=== PATIENT | female | born 1950 | race Caucasian/White ===

== ENCOUNTER 2016-11-02 10:54 | Inpatient (IN) | payer MEDICARE, BC, MEDICAID ==
[~2016-11-02] VITALS: Ht 157.5 cm; Wt 128.5 kg
[~2016-11-02 10:54] MED LIST: CELEXA 20MG20 MG/TAB PO; COLACE 100100 MG/CAP PO; COUMADIN 6MG6 MG/TAB PO; DITROPAN 5MG TAB5 MG PO; FERRATE325 MG PO; FOLIC ACID 11 MG/TA1 PO; LASIX 40MG TABL40 MG PO; MILLIPRED5 MG PO; MINOCYCLIN100 MG/CAP PO; MOBIC15 MG PO; NIFEREX-150150 MG PO; NORCO 325 MG-7.1 TAB PO; OXECTA5 MG PO; PERCOCET 325 MG1 TA2 PO; PREDNISONE 5MG5 MG PO; RIFAMPIN300 MG PO; RIFAMPIN600 MG PO; RITALIN10 MG PO; TYLENOL 500MG500 MG PO; ULTRAM 50MG TAB50 MG PO; [UNRECOGNIZED DRUG - CODE] IV
[2016-11-02 11:29] LABS: BASO % 0.4 % (0.0-2.0); EOS # 0.1 (0.0-0.7); EOS % 0.5 % (0-4.0); GRAN # 8.6 (1.4-6.5); GRAN % 80.1 % (42.2-75.2); HEMATOCRIT 37.5 % (37.0-47.0); LYMPH # 1.2 (1.2-3.4); LYMPH % 10.9 % (20.0-51.0); MEAN CELL VOLUME 90 fl (80.0-100.0); MEAN CORPUSCULAR HEMOGLOBIN 28 pg (27.0-31.0); MEAN CORPUSCULAR HGB CONC 32 g/dl (33.0-37.0); MEAN PLATELET VOLUME 10.4 fl (7.4-10.4); MONO # 0.8 (0.1-0.6); MONO % 7.6 % (1.7-9.3); PLATELET COUNT 321 K/mm3 (130-400); RED BLOOD COUNT 4.17 M/mm3 (4.10-5.30); REDCELL DISTRIBUTION WIDTH-CV 15.1 % (11.5-14.5)
[2016-11-02 11:30] LABS: HEMOGLOBIN 11.8 g/dl (12.5-16.0)
[2016-11-02 11:40] LABS: ALBUMIN 3.3 gm/dL (3.5-5.0); BILIRUBIN,TOTAL 0.7 mg/dL (0.0-1.0); C-REACTIVE PROTEIN 0.8 mg/dL (0.0-0.9); CALCIUM 9.4 mg/dL (8.4-10.2); CREATININE, serum 0.62 mg/dL (0.52-1.25); POTASSIUM 3.5 mmol/L (3.4-5.0); TOTAL PROTEIN 6.7 gm/dL (6.4-8.2)
[2016-11-02] MEDS ORDERED: MULTI VITAMINS1 TAB PO (11:41)
[2016-11-02] MEDS ORDERED: PROAIR HFA0.09 MG/AC IH (11:41)
[2016-11-02] MEDS ORDERED: ASPIRIN 32325 MG/TAB PO (11:49)
[2016-11-02] MEDS ORDERED: OSCAL 500 TAB500 MG PO (11:50)
[2016-11-02] MEDS ORDERED: B-12 500 MCG PO (11:50)
[2016-11-02 11:52] LABS: TROPONIN-I 1.59 ng/mL (0.000-0.034)
[2016-11-02] MEDS ORDERED: D3-5050000 IU (11:56)
[2016-11-02] MEDS ORDERED: MELAT3MGTAB (11:57)
[2016-11-02] MEDS ORDERED: FOSAMAX 70MG TA70 MG PO (11:57)
[2016-11-02] MEDS ORDERED: FOLIC ACID 11 MG/TA1 PO (11:57)
[2016-11-02] MEDS ORDERED: METHOTREXA2.5 MG/TAB PO (11:59)
[2016-11-02] MEDS ORDERED: ORENCIA CL125 MG/1 M SQ (12:01)
[2016-11-02 12:11] LABS: INR 1.1 (0.8-3.0); PROTHROMBIN TIME 11.7 SECONDS (9.7-12.8)
[2016-11-02 15:10] LABS: TROPONIN-I 3 HR POST INITIAL 1.47 ng/mL (0.000-0.034)
--- NOTE | 2016-11-02 15:15 | NUR ---
PATIENT HAS ARRIVED TO ICU 4. VSS. HEPARIN GTT AND NITRO GTT INFUSING. NO COMPLAINTS. WILL CONTINUE TO MONITOR.
[2016-11-02] MEDS ORDERED: VITAMIN D 400400 IU PO (15:45)
[2016-11-02] MEDS ORDERED: PAXIL 20MG20 MG PO (15:50)
[2016-11-02] MEDS ORDERED: MOBIC15 MG PO (15:52)
[2016-11-02] MEDS ORDERED: PROBIOTIC ACID1 EAC3 PO (15:53)
[2016-11-02 16:00] VITALS: BP 127/76; PULSE 72; TEMP 98.5
[2016-11-02 16:18] VITALS: BP 104/76; PULSE 60
--- NOTE | 2016-11-02 18:14 | NUR ---
PATIENT RESTING BETTER AFTER COMPLAINTS OF BACK PAIN. NORCO GIVEN ABOUT 1.5 HRS AGO. WILL CONTINUE TO MONITOR. VS REMAIN STABLE.
[2016-11-02 20:40] VITALS: BP 100/74; PULSE 64; TEMP 98.7
--- NOTE | 2016-11-02 20:40 | NUR ---
Patient assessment completed, vital signs are stable, patient reports having pain at this time, she denies having any additional concerns, currently she is resting calmly in bed, call light is in reach, will continue to monitor.
[2016-11-03] VITALS (22 sets, daily range): BP systolic 87–146; BP diastolic 50–105; PULSE 48–73; TEMP 97–98.4
--- NOTE | 2016-11-03 04:00 | NUR ---
Patient's nitro drip is now currently on hold for lexiscan in the morning per Dr. Wilder.
[2016-11-03 04:53] LABS: HEMATOCRIT 33.1 % (37.0-47.0); HEMOGLOBIN 10.3 g/dl (12.5-16.0); MEAN CELL VOLUME 91 fl (80.0-100.0); MEAN CORPUSCULAR HEMOGLOBIN 28 pg (27.0-31.0); MEAN CORPUSCULAR HGB CONC 31 g/dl (33.0-37.0); MEAN PLATELET VOLUME 10.3 fl (7.4-10.4); PLATELET COUNT 246 K/mm3 (130-400); RED BLOOD COUNT 3.62 M/mm3 (4.10-5.30); REDCELL DISTRIBUTION WIDTH-CV 15.3 % (11.5-14.5)
[2016-11-03 05:02] LABS: CALCIUM 8.7 mg/dL (8.4-10.2); CREATININE, serum 0.75 mg/dL (0.52-1.25); POTASSIUM 3.7 mmol/L (3.4-5.0)
[2016-11-03 05:19] LABS: TROPONIN-I 0.756 ng/mL (0.000-0.034)
--- NOTE | 2016-11-03 06:40 | NUR ---
Patient has been sleeping/resting well through the night, vital signs have been stable, she has been hypotensive but asymptomatic, she has reported having pain and requested pain meds when needed, she has denied having any additional concerns, currently she is resting calmly in bed, call light is in reach, will continue to monitor.
--- NOTE | 2016-11-03 08:00 | NUR ---
Patient resting in bed, vitals stable, assessment as charted, denies pain at this time, voiding in bedside commode, standby assist, no other needs expressed at this time, call light within reach, will continue to monitor.
--- NOTE | 2016-11-03 08:20 | NUR ---
Patient taken down for lexiscan via wheelchair
--- NOTE | 2016-11-03 08:45 | NUR ---
Patient returned from lexiscan, tolerated well, vitals stable, no other needs at this time.
--- NOTE | 2016-11-03 12:00 | NUR ---
Patient resting in bed, vitals stable, remaining NPO for Heart Cath, denies any chest pain, no other needs expressed at this time, call light within reach, will continue to monitor.
--- NOTE | 2016-11-03 15:34 | NUR ---
Patient receives retirement and physical therapy from [facility].
--- NOTE | 2016-11-03 15:55 | NUR ---
Consent for heart cath signed, Patient taken to [facility].
--- NOTE | 2016-11-03 17:20 | NUR ---
Patient returned from heart cath, TR band at 10 cc on R radial, pulses palpable, vitals stable, denies pain, assisted with ordering dinner, family at [facility], no other needs expressed at this time, will continue to monitor.
--- NOTE | 2016-11-03 19:15 | NUR ---
Received report from SOPHIE Chow
--- NOTE | 2016-11-03 22:30 | NUR ---
Patient up to chair to watch television with stand by assist only . Patient had difficulty standing back up to return to bed; two person assist required.
[2016-11-04] VITALS (8 sets, daily range): BP systolic 97–161; BP diastolic 50–95; PULSE 49–53; TEMP 97.4–98.8
--- NOTE | 2016-11-04 03:24 | NUR ---
Patient currently resting in bed with eyes shut. VS stable.
[2016-11-04 05:08] LABS: BASO % 0.4 % (0.0-2.0); EOS # 0.2 (0.0-0.7); EOS % 3.9 % (0-4.0); GRAN # 3.2 (1.4-6.5); GRAN % 55.7 % (42.2-75.2); LYMPH # 1.6 (1.2-3.4); LYMPH % 28.4 % (20.0-51.0); MEAN CELL VOLUME 92 fl (80.0-100.0); MEAN CORPUSCULAR HGB CONC 31 g/dl (33.0-37.0); MEAN PLATELET VOLUME 10.5 fl (7.4-10.4); MONO # 0.6 (0.1-0.6); MONO % 11.2 % (1.7-9.3); PLATELET COUNT 240 K/mm3 (130-400); REDCELL DISTRIBUTION WIDTH-CV 15.2 % (11.5-14.5)
[2016-11-04 05:19] LABS: HEMATOCRIT 33.1 % (37.0-47.0); HEMOGLOBIN 10.3 g/dl (12.5-16.0); MEAN CORPUSCULAR HEMOGLOBIN 29 pg (27.0-31.0)
[2016-11-04 05:28] LABS: CALCIUM 8.5 mg/dL (8.4-10.2); CREATININE, serum 0.66 mg/dL (0.52-1.25); POTASSIUM 3.6 mmol/L (3.4-5.0)
--- NOTE | 2016-11-04 07:15 | NUR ---
Report given to SOPHIE Chow
--- NOTE | 2016-11-04 08:45 | NUR ---
Patient resting in bed, vitals stable, rating pain at 2/10, drowsy but easily arousable, assessment as charted, R radial has easily palpable pulse, bandaid CDI, took morning medications without difficulty, ate all of her breakfast, no other needs expressed at this time, call light within reach, will continue to monitor.
--- NOTE | 2016-11-04 12:07 | NUR ---
Patient resting in bed, vitals stable, heart rate remains bradycardic, patient is asymptomatic, rating back pain 2/10, prn pain medication given, assisted with repositioning, and ordering lunch, no other needs expressed at this time, call light within reach, will continue to monitor.
--- NOTE | 2016-11-04 15:15 | NUR ---
Patient escorted up to the medical floor on tele, via wheelchair, report called to Rimma BARRIOS, she will resume care at this time.
--- NOTE | 2016-11-04 15:30 | NUR ---
Pt arrived to floor at this time.
--- NOTE | 2016-11-04 18:22 | NUR ---
Pt sitting up on side of bed eating dinner, friend at bedside. She has been dozing off and on in bed since arriving to the medical floor. She denies any pain or needs. Call light within reach. Will monitor.
--- NOTE | 2016-11-04 19:00 | NUR ---
Report given to Liyah. Pt up to the bathroom with assistance. All questions answered.
--- NOTE | 2016-11-04 21:00 | NUR ---
PT RESTING IN BED. CPAP ON. BED IN LOW POSITION. CALL LIGHT WITHIN REACH.
[2016-11-05 00:18] VITALS: BP 96/51; PULSE 52
[2016-11-05 04:51] VITALS: BP 92/50; PULSE 54; TEMP 98.1
[2016-11-05 07:58] VITALS: BP 103/53; PULSE 46; TEMP 97.8
--- NOTE | 2016-11-05 08:15 | NUR ---
Pt resting in bed with call light within reach; assessment complete and charted. Very drowsy this AM but wakens when spoken to. Denies further needs at this time. Will continue to monitor. INT flushed to left forearm.
--- NOTE | 2016-11-05 09:59 | NUR ---
RA and SW student met with patient to review discharge plan. Patient lives alone in [place], she uses a manual wheelchair and a walker; she reports independence with ADLs. Patient plans to return home upon discharge with home health services for PT/OT and nursing. SW to continue to follow.
[2016-11-05 11:21] VITALS: BP 94/54; PULSE 57; TEMP 97.4
[2016-11-05] MEDS ORDERED: COREG 3.123.125 MG/T PO (12:41)
[2016-11-05] MEDS ORDERED: VASOTEC 5MG5 MG/TAB PO (12:41)
[2016-11-05 12:43] VITALS: BP 94/54; PULSE 57; TEMP 97.4
--- NOTE | 2016-11-05 14:12 | NUR ---
RA and RA student followed up with patient, as patient has had increased weakness. Patient agreeable to a skilled stay upon discharge, RA reviewed options and patient chooses [facility]. Referral made. Bhavesh with [facility] accepts patient for a skilled stay. Discharge orders faxed to Bhavesh and transportation arranged for [id number] today. Patient informed of transport time.
--- NOTE | 2016-11-05 15:53 | NUR ---
Report given to nurse at [facility]. INT removed from left forearm. Pt assissted to dress; all questions answered. No further needs at this time. Pt discharges via facility transportation.
[2017-07-06] MEDS ORDERED: DITROPAN 5MG TAB5 MG PO (12:29)
[2017-07-06] MEDS ORDERED: NORCO 325 MG-7.1 TAB PO (12:29)
[2017-07-06] MEDS ORDERED: MOBIC15 MG PO ×2 (12:30)
[2017-07-06] MEDS ORDERED: MIRALAX PA17 GM/Dose PO (12:31)
[2017-07-06] MEDS ORDERED: DULCOLAX STOOL100 MG PO (12:32)
[2017-07-06] MEDS ORDERED: MELATONIN5 M1 PO (12:32)
[2017-07-06] MEDS ORDERED: DURLAZA162.5 MG PO (12:33)
[2017-07-06] MEDS ORDERED: VASOTEC 5MG5 MG/TAB PO (12:34)
[2017-07-06] MEDS ORDERED: CYMBALTA 60MG60 MG PO (12:34)
[2017-07-06] MEDS ORDERED: COREG 3.123.125 MG/T PO (12:34)
[2017-07-06] MEDS ORDERED: FOSAMAX 70MG TA70 MG PO (12:35)
[2017-07-06] MEDS ORDERED: TURMERIC500 MG PO (12:35)
[2017-07-06] MEDS ORDERED: DOXYCYCLINE 10100 MG PO (12:36)
[2017-07-06] MEDS ORDERED: FOLIC ACID 11 MG/TA1 PO (12:36)
[2017-07-06] MEDS ORDERED: MULTI VITAMINS1 TAB PO (12:36)
[2017-07-06] MEDS ORDERED: PROBIOTIC ACID1 EAC3 PO (12:37)
[2017-07-06] MEDS ORDERED: VITAMIN D 400400 IU PO (12:37)
[2017-07-06] MEDS ORDERED: PROAIR HFA0.09 MG/AC IH (12:38)
[2017-07-09] MEDS ORDERED: ASPI325T6 PO (15:14)
[2017-07-09] MEDS ORDERED: VANCOCIN HCL1 GM IV (15:20)
[2017-07-09] MEDS ORDERED: NEURONTIN100 MG/CAP PO (15:20)
[2017-07-09] MEDS ORDERED: NS INT FLUSH 1010 ML IV (15:24)
[2017-07-09] MEDS ORDERED: HEPARIN 50500 U/5 ML IV (15:24)
[2017-07-09] MEDS ORDERED: NORCO 325 MG-7.1 TAB PO (15:24)
[2017-07-10] MEDS ORDERED: PHENERGAN25 MG/ML IM (11:50)
== END 2016-11-05 15:54 | DRG 280 ==
LOC: COL.ER 10:54 → ICU 12:13 → MEDICAL 11-04 15:34
PROVIDERS: Emergency Medicine; Family Medicine; ADMIT Internal Medicine Cardiovascular Disease
PROC: B2111ZZ Fluoroscopy of Multiple Coronary Arteries using Low Osmolar Contrast (ICD-10-PCS; principal; 2016-11-03)
PROC: B2151ZZ Fluoroscopy of Left Heart using Low Osmolar Contrast (ICD-10-PCS; 2016-11-03)
DX: I42.0 Dilated cardiomyopathy (principal); I50.23 Acute on chronic systolic (congestive) heart failure; I21.4 Non-ST elevation (NSTEMI) myocardial infarction; Z68.43 Body mass index [BMI] 50.0-59.9, adult; I69.354 Hemiplegia and hemiparesis following cerebral infarction affecting left non-dominant side; I25.10 Atherosclerotic heart disease of native coronary artery without angina pectoris; E66.01 Morbid (severe) obesity due to excess calories; I11.0 Hypertensive heart disease with heart failure; F17.210 Nicotine dependence, cigarettes, uncomplicated; Z98.84 Bariatric surgery status; M06.9 Rheumatoid arthritis, unspecified
CPT/HCPCS: 99223-AI; 99232-AI; 99239; A9502; C1769; J1170; J1644; J1650; J2250; J2785; J3010; J7030; J8610; Q9967

== ENCOUNTER 2016-12-25 11:47 | Emergency (ER) | payer MEDICARE, BC ==
[~2016-12-25] VITALS: Ht 157.5 cm; Wt 118.2 kg
[~2016-12-25 11:47] MED LIST changes: +ASPIRIN 32325 MG/TAB PO; +B-12 500 MCG PO; +COREG 3.123.125 MG/T PO; +D3-5050000 IU; +FOSAMAX 70MG TA70 MG PO; +MELAT3MGTAB; +METHOTREXA2.5 MG/TAB PO; +MULTI VITAMINS1 TAB PO; +ORENCIA CL125 MG/1 M SQ; +OSCAL 500 TAB500 MG PO; +PAXIL 20MG20 MG PO; +PROAIR HFA0.09 MG/AC IH; +PROBIOTIC ACID1 EAC3 PO; +VASOTEC 5MG5 MG/TAB PO; +VITAMIN D 400400 IU PO
[2016-12-25 11:48] VITALS: TEMP 9831
[2016-12-25] MEDS ORDERED: CEPHALEXIN500 M1 PO (14:43)
[2016-12-25 17:12] VITALS: BP 151/83; PULSE 84
== END 2016-12-25 17:13 | disposition home or self-care (01) ==
LOC: COL.ER 11:47
DX: S90.32XA Contusion of left foot, initial encounter (principal); I25.10 Atherosclerotic heart disease of native coronary artery without angina pectoris; I25.2 Old myocardial infarction; I10 Essential (primary) hypertension; J44.9 Chronic obstructive pulmonary disease, unspecified; E78.5 Hyperlipidemia, unspecified; Z87.891 Personal history of nicotine dependence; Z79.82 Long term (current) use of aspirin; W01.0XXA Fall on same level from slipping, tripping and stumbling without subsequent striking against object, initial encounter; Y92.009 Unspecified place in unspecified non-institutional (private) residence as the place of occurrence of the external cause
CPT/HCPCS: J3010

== ENCOUNTER → 2017-01-15 | Outpatient (CLI) | payer MEDICARE, BC ==
[~2017-01-15] MED LIST changes: +CEPHALEXIN500 M1 PO
== END ==
LOC: ZLAB.STJ 14:30
DX: I50.22 Chronic systolic (congestive) heart failure (principal); D50.9 Iron deficiency anemia, unspecified

== ENCOUNTER → 2017-01-25 | Outpatient (CLI) | payer MEDICARE, BC ==
[2017-01-25 14:38] LABS: CALCIUM 9.1 mg/dL (8.4-10.2); CREATININE, serum 0.7 mg/dL (0.52-1.25); POTASSIUM 4.7 mmol/L (3.4-5.0); URIC ACID 4.9 mg/dL (2.5-6.2)
== END ==
LOC: ZLAB.STJ 14:22
PROVIDERS: Internal Medicine
DX: I21.4 Non-ST elevation (NSTEMI) myocardial infarction (principal); M06.9 Rheumatoid arthritis, unspecified

== ENCOUNTER → 2017-02-25 | Outpatient (CLI) | payer MEDICARE, BC ==
[2017-02-25 15:25] LABS: BASO % 0.7 % (0.0-2.0); EOS # 0.5 (0.0-0.7); EOS % 8.9 % (0-4.0); GRAN # 3.1 (1.4-6.5); GRAN % 51.3 % (42.2-75.2); LYMPH # 1.9 (1.2-3.4); LYMPH % 31.2 % (20.0-51.0); MEAN CELL VOLUME 96 fl (80.0-100.0); MEAN CORPUSCULAR HGB CONC 31 g/dl (33.0-37.0); MONO # 0.5 (0.1-0.6); MONO % 7.6 % (1.7-9.3); PLATELET COUNT 316 K/mm3 (130-400); RED BLOOD COUNT 3.62 M/mm3 (4.10-5.30); REDCELL DISTRIBUTION WIDTH-CV 15.6 % (11.5-14.5)
[2017-02-25 15:27] LABS: HEMATOCRIT 34.9 % (37.0-47.0); HEMOGLOBIN 10.7 g/dl (12.5-16.0); MEAN CORPUSCULAR HEMOGLOBIN 30 pg (27.0-31.0)
[2017-02-25 15:43] LABS: ALBUMIN 3.4 gm/dL (3.5-5.0); BILIRUBIN,TOTAL 0.3 mg/dL (0.0-1.0); CALCIUM 9.4 mg/dL (8.4-10.2); CREATININE, serum 1.17 mg/dL (0.52-1.25); TOTAL PROTEIN 6.8 gm/dL (6.4-8.2)
[2017-02-25 15:52] LABS: POTASSIUM 4.7 mmol/L (3.4-5.0)
== END ==
LOC: ZLAB.STJ 15:21
PROVIDERS: Internal Medicine
DX: I50.22 Chronic systolic (congestive) heart failure (principal)

== ENCOUNTER → 2017-04-23 | Outpatient (REF) | LOC: ZLAB.STJ 15:33 | DX: Z01.89 Encounter for other specified special examinations (principal) ==

== ENCOUNTER → 2017-07-13 | Outpatient (REF) ==
[~2017-07-13] MED LIST changes: +ASPI325T6 PO; +CYMBALTA 60MG60 MG PO; +DOXYCYCLINE 10100 MG PO; +DULCOLAX STOOL100 MG PO; +DURLAZA162.5 MG PO; +HEPARIN 50500 U/5 ML IV; +MELATONIN5 M1 PO; +MIRALAX PA17 GM/Dose PO; +NEURONTIN100 MG/CAP PO; +NS INT FLUSH 1010 ML IV; +PHENERGAN25 MG/ML IM; +TURMERIC500 MG PO; +VANCOCIN HCL1 GM IV
[2017-07-13 09:42] LABS: MEAN CELL VOLUME 90 fl (80.0-100.0); MEAN CORPUSCULAR HGB CONC 31 g/dl (33.0-37.0); MEAN PLATELET VOLUME 9.5 fl (7.4-10.4); PLATELET COUNT 525 K/mm3 (130-400); RED BLOOD COUNT 3.15 M/mm3 (4.10-5.30); REDCELL DISTRIBUTION WIDTH-CV 14.5 % (11.5-14.5)
[2017-07-13 09:44] LABS: HEMATOCRIT 28.2 % (37.0-47.0); HEMOGLOBIN 8.6 g/dl (12.5-16.0); MEAN CORPUSCULAR HEMOGLOBIN 27 pg (27.0-31.0)
[2017-07-13 10:06] LABS: ALBUMIN 2.5 gm/dL (3.5-5.0); BILIRUBIN,TOTAL 0.2 mg/dL (0.0-1.0); CALCIUM 9.2 mg/dL (8.4-10.2); CREATININE, serum 0.67 mg/dL (0.52-1.25); POTASSIUM 4.4 mmol/L (3.4-5.0); TOTAL PROTEIN 5.8 gm/dL (6.4-8.2)
[2017-07-13 11:30] LABS: BAND 12 % (0-10); EOSINOPHIL 5 % (0-4); LYMPHOCYTE 27 % (20.0-51.0); NEUTROPHILS 55 % (42.0-75.2); PLATELET ESTIMATE INCREASED (NORMAL)
== END ==
LOC: ZLAB.STJ 09:31
PROVIDERS: Internal Medicine
DX: Z51.81 Encounter for therapeutic drug level monitoring (principal); I10 Essential (primary) hypertension; Z48.817 Encounter for surgical aftercare following surgery on the skin and subcutaneous tissue

== ENCOUNTER → 2017-07-14 | Outpatient (REF) ==
[2017-07-14 10:07] LABS: CREATININE, serum 0.67 mg/dL (0.52-1.25)
[2017-07-14 11:26] LABS: VANCOMYCIN TROUGH 21.67 ug/mL (7.00-20.00)
== END ==
LOC: ZLAB.STJ 09:42
PROVIDERS: Internal Medicine Infectious Disease
DX: Z51.81 Encounter for therapeutic drug level monitoring (principal); R79.89 Other specified abnormal findings of blood chemistry

== ENCOUNTER → 2017-07-15 | Outpatient (REF) | LOC: ZLAB.STJ 09:21 | DX: Z01.89 Encounter for other specified special examinations (principal) ==

== ENCOUNTER → 2017-07-16 | Outpatient (REF) ==
[2017-07-16 09:44] LABS: CREATININE, serum 0.73 mg/dL (0.52-1.25)
[2017-07-16 10:20] LABS: VANCOMYCIN TROUGH 8.23 ug/mL (7.00-20.00)
== END ==
LOC: ZLAB.STJ 09:28
PROVIDERS: Internal Medicine Infectious Disease
DX: Z51.81 Encounter for therapeutic drug level monitoring (principal)

== ENCOUNTER → 2017-07-19 | Outpatient (REF) ==
[2017-07-19 10:07] LABS: BASO # 0.1 (0.0-0.2); BASO % 0.8 % (0.0-2.0); EOS # 0.5 (0.0-0.7); EOS % 6.9 % (0-4.0); GRAN # 2.9 (1.4-6.5); GRAN % 44.4 % (42.2-75.2); LYMPH # 2.4 (1.2-3.4); LYMPH % 36.3 % (20.0-51.0); MEAN CELL VOLUME 90 fl (80.0-100.0); MEAN CORPUSCULAR HGB CONC 30 g/dl (33.0-37.0); MEAN PLATELET VOLUME 9.7 fl (7.4-10.4); MONO # 0.7 (0.1-0.6); MONO % 10.4 % (1.7-9.3); PLATELET COUNT 528 K/mm3 (130-400); RED BLOOD COUNT 3.33 M/mm3 (4.10-5.30); REDCELL DISTRIBUTION WIDTH-CV 14.8 % (11.5-14.5)
[2017-07-19 10:08] LABS: ALBUMIN 2.6 gm/dL (3.5-5.0); BILIRUBIN,TOTAL 0.4 mg/dL (0.0-1.0); CALCIUM 8.9 mg/dL (8.4-10.2); CREATININE, serum 0.8 mg/dL (0.52-1.25); TOTAL PROTEIN 5.8 gm/dL (6.4-8.2)
[2017-07-19 10:13] LABS: VANCOMYCIN TROUGH 12.47 ug/mL (7.00-20.00)
[2017-07-19 10:19] LABS: HEMATOCRIT 29.9 % (37.0-47.0); MEAN CORPUSCULAR HEMOGLOBIN 27 pg (27.0-31.0)
== END ==
LOC: ZLAB.STJ 09:47
PROVIDERS: Internal Medicine Infectious Disease
DX: Z51.81 Encounter for therapeutic drug level monitoring (principal); R68.89 Other general symptoms and signs

== ENCOUNTER → 2017-07-22 | Outpatient (REF) | LOC: ZLAB.STJ 09:22 | DX: Z01.89 Encounter for other specified special examinations (principal) ==

== ENCOUNTER → 2017-07-26 | Outpatient (REF) ==
[~2017-07-26] MED LIST changes: +NORCO 325 MG-101 TAB PO; +OPTIMUM AC500 Millio PO
[2017-07-26 11:53] LABS: BASO # 0.1 (0.0-0.2); EOS # 0.8 (0.0-0.7); EOS % 12.9 % (0-4.0); GRAN # 2.6 (1.4-6.5); GRAN % 43.9 % (42.2-75.2); LYMPH # 1.9 (1.2-3.4); LYMPH % 31.7 % (20.0-51.0); MEAN CELL VOLUME 89 fl (80.0-100.0); MEAN CORPUSCULAR HGB CONC 30 g/dl (33.0-37.0); MEAN PLATELET VOLUME 9.6 fl (7.4-10.4); MONO # 0.6 (0.1-0.6); MONO % 10.2 % (1.7-9.3); PLATELET COUNT 413 K/mm3 (130-400); RED BLOOD COUNT 3.51 M/mm3 (4.10-5.30); REDCELL DISTRIBUTION WIDTH-CV 14.9 % (11.5-14.5)
[2017-07-26 11:54] LABS: HEMATOCRIT 31.1 % (37.0-47.0); HEMOGLOBIN 9.4 g/dl (12.5-16.0); MEAN CORPUSCULAR HEMOGLOBIN 27 pg (27.0-31.0)
[2017-07-26 12:02] LABS: ALBUMIN 2.9 gm/dL (3.5-5.0); BILIRUBIN,TOTAL 0.4 mg/dL (0.0-1.0); C-REACTIVE PROTEIN 4.6 mg/dL (0.0-0.9); CREATININE, serum 1.07 mg/dL (0.52-1.25); TOTAL PROTEIN 6.9 gm/dL (6.4-8.2)
[2017-07-26 12:19] LABS: ERYTHROCYTE SEDIMENTATION RATE 52 mm/hr (0-30)
== END ==
LOC: ZLAB.STJ 11:43
PROVIDERS: Internal Medicine Infectious Disease
DX: Z01.89 Encounter for other specified special examinations (principal)

== ENCOUNTER 2017-07-27 14:40 | Inpatient (IN) | payer MEDICARE, BC ==
[~2017-07-27] VITALS: Ht 157.5 cm; Wt 106.6 kg
[~2017-07-27 14:40] MED LIST changes: -NORCO 325 MG-101 TAB PO; -OPTIMUM AC500 Millio PO
[2017-07-27 15:25] VITALS: BP 105/60; PULSE 59; TEMP 97.9
[2017-07-27] MEDS ORDERED: VANCOCIN HCL1 GM IV ×2 (16:30→16:31)
[2017-07-27] MEDS ORDERED: OPTIMUM AC500 Millio PO (16:34)
[2017-07-27] MEDS ORDERED: NORCO 325 MG-101 TAB PO (16:59)
[2017-07-27 17:37] LABS: BASO # 0.1 (0.0-0.2); BASO % 1.1 % (0.0-2.0); EOS # 0.8 (0.0-0.7); EOS % 15.1 % (0-4.0); GRAN % 37.9 % (42.2-75.2); LYMPH # 1.9 (1.2-3.4); LYMPH % 35.1 % (20.0-51.0); MEAN CELL VOLUME 90 fl (80.0-100.0); MEAN CORPUSCULAR HEMOGLOBIN 27 pg (27.0-31.0); MEAN CORPUSCULAR HGB CONC 30 g/dl (33.0-37.0); MEAN PLATELET VOLUME 9.2 fl (7.4-10.4); MONO # 0.6 (0.1-0.6); MONO % 10.2 % (1.7-9.3); PLATELET COUNT 407 K/mm3 (130-400); RED BLOOD COUNT 3.69 M/mm3 (4.10-5.30); REDCELL DISTRIBUTION WIDTH-CV 14.8 % (11.5-14.5)
[2017-07-27 17:41] LABS: HEMATOCRIT 33.2 % (37.0-47.0)
[2017-07-27 17:50] LABS: ALBUMIN 3.2 gm/dL (3.5-5.0); BILIRUBIN,TOTAL 0.4 mg/dL (0.0-1.0); CALCIUM 9.2 mg/dL (8.4-10.2); CREATININE, serum 1.12 mg/dL (0.52-1.25); POTASSIUM 5.4 mmol/L (3.4-5.0); TOTAL PROTEIN 7.4 gm/dL (6.4-8.2)
[2017-07-27 18:08] LABS: ERYTHROCYTE SEDIMENTATION RATE 55 mm/hr (0-30)
[2017-07-27 19:01] LABS: COLLECTION METHOD CLEAN CATCH
[2017-07-27 19:12] LABS: PH 5 (5-8); SQUAMOUS EPITHELIAL 0-2 /hpf; URINE APPEARANCE Clear; URINE BACTERIA Rare /hpf; URINE BILIRUBIN Negative (NEGATIVE); URINE BLOOD Negative (NEGATIVE); URINE COLOR Yellow; URINE GLUCOSE Negative (NEGATIVE); URINE KETONE Negative (NEGATIVE); URINE LEUKOCYTE ESTERASE Negative (NEGATIVE); URINE NITRATE Negative (NEGATIVE); URINE PROTEIN(semi-quant) Negative (NEGATIVE); URINE RBC 0-2 /hpf
[2017-07-27 20:25] VITALS: BP 96/55; PULSE 73; TEMP 98.1
[2017-07-28] VITALS (7 sets, daily range): BP systolic 96–126; BP diastolic 48–68; PULSE 61–92; TEMP 98–98.5
[2017-07-28 07:44] LABS: BASO # 0.1 (0.0-0.2); BASO % 1.1 % (0.0-2.0); EOS # 0.8 (0.0-0.7); EOS % 14.6 % (0-4.0); GRAN # 2.4 (1.4-6.5); GRAN % 41.4 % (42.2-75.2); LYMPH # 1.8 (1.2-3.4); LYMPH % 31.4 % (20.0-51.0); MEAN CELL VOLUME 91 fl (80.0-100.0); MEAN CORPUSCULAR HGB CONC 30 g/dl (33.0-37.0); MEAN PLATELET VOLUME 9.7 fl (7.4-10.4); MONO # 0.6 (0.1-0.6); MONO % 11.1 % (1.7-9.3); PLATELET COUNT 389 K/mm3 (130-400); REDCELL DISTRIBUTION WIDTH-CV 14.8 % (11.5-14.5)
[2017-07-28 07:50] LABS: HEMATOCRIT 30.8 % (37.0-47.0); HEMOGLOBIN 9.3 g/dl (12.5-16.0); MEAN CORPUSCULAR HEMOGLOBIN 27 pg (27.0-31.0)
[2017-07-28 07:56] LABS: CREATININE, serum 0.8 mg/dL (0.52-1.25)
[2017-07-29 00:18] VITALS: BP 124/73; PULSE 66; TEMP 97.6
[2017-07-29 03:59] VITALS: BP 120/69; PULSE 70; TEMP 97.5
[2017-07-29 06:33] LABS: BASO % 0.7 % (0.0-2.0); EOS # 0.7 (0.0-0.7); EOS % 11.6 % (0-4.0); GRAN # 2.6 (1.4-6.5); GRAN % 46.8 % (42.2-75.2); LYMPH # 1.6 (1.2-3.4); LYMPH % 28.9 % (20.0-51.0); MEAN CELL VOLUME 91 fl (80.0-100.0); MEAN CORPUSCULAR HGB CONC 30 g/dl (33.0-37.0); MEAN PLATELET VOLUME 9.3 fl (7.4-10.4); MONO # 0.7 (0.1-0.6); MONO % 11.6 % (1.7-9.3); PLATELET COUNT 366 K/mm3 (130-400); RED BLOOD COUNT 3.37 M/mm3 (4.10-5.30); REDCELL DISTRIBUTION WIDTH-CV 14.7 % (11.5-14.5)
[2017-07-29 06:45] LABS: HEMATOCRIT 30.5 % (37.0-47.0); HEMOGLOBIN 9.2 g/dl (12.5-16.0); MEAN CORPUSCULAR HEMOGLOBIN 27 pg (27.0-31.0)
[2017-07-29 06:47] LABS: CALCIUM 9.3 mg/dL (8.4-10.2); CREATININE, serum 0.77 mg/dL (0.52-1.25); POTASSIUM 4.9 mmol/L (3.4-5.0)
[2017-07-29 08:01] VITALS: BP 122/70; PULSE 57; TEMP 97.7
[2017-07-29 12:55] VITALS: BP 111/56; PULSE 56; TEMP 98.4
[2017-07-29 16:11] VITALS: BP 101/60; PULSE 66; TEMP 97.5
[2017-07-29 20:11] VITALS: BP 96/50; PULSE 70; TEMP 98
[2017-07-30] VITALS (14 sets, daily range): BP systolic 92–134; BP diastolic 44–95; PULSE 58–110; TEMP 97.8–98.3
[2017-07-30 08:44] LABS: BASO # 0.1 (0.0-0.2); EOS # 0.6 (0.0-0.7); EOS % 11.6 % (0-4.0); GRAN % 38.2 % (42.2-75.2); LYMPH % 37.6 % (20.0-51.0); MEAN CELL VOLUME 89 fl (80.0-100.0); MEAN CORPUSCULAR HGB CONC 30 g/dl (33.0-37.0); MEAN PLATELET VOLUME 9.7 fl (7.4-10.4); MONO # 0.6 (0.1-0.6); PLATELET COUNT 343 K/mm3 (130-400); REDCELL DISTRIBUTION WIDTH-CV 14.8 % (11.5-14.5)
[2017-07-30 08:47] LABS: HEMATOCRIT 31.1 % (37.0-47.0); HEMOGLOBIN 9.4 g/dl (12.5-16.0); MEAN CORPUSCULAR HEMOGLOBIN 27 pg (27.0-31.0)
[2017-07-30 08:55] LABS: CALCIUM 9.7 mg/dL (8.4-10.2); CREATININE, serum 0.82 mg/dL (0.52-1.25); POTASSIUM 4.8 mmol/L (3.4-5.0)
[2017-07-31 00:15] VITALS: BP 130/80; PULSE 80; TEMP 98.1
[2017-07-31 04:56] VITALS: BP 128/74; PULSE 76; TEMP 98.4
[2017-07-31 07:23] LABS: BASO # 0.1 (0.0-0.2); BASO % 0.9 % (0.0-2.0); EOS # 0.4 (0.0-0.7); EOS % 6.3 % (0-4.0); GRAN # 2.7 (1.4-6.5); GRAN % 49.2 % (42.2-75.2); LYMPH # 1.6 (1.2-3.4); LYMPH % 28.9 % (20.0-51.0); MEAN CELL VOLUME 91 fl (80.0-100.0); MEAN CORPUSCULAR HGB CONC 30 g/dl (33.0-37.0); MEAN PLATELET VOLUME 9.9 fl (7.4-10.4); MONO # 0.8 (0.1-0.6); PLATELET COUNT 343 K/mm3 (130-400); RED BLOOD COUNT 3.32 M/mm3 (4.10-5.30); REDCELL DISTRIBUTION WIDTH-CV 14.6 % (11.5-14.5)
[2017-07-31 07:28] LABS: HEMATOCRIT 30.3 % (37.0-47.0); MEAN CORPUSCULAR HEMOGLOBIN 27 pg (27.0-31.0)
[2017-07-31 07:48] LABS: CALCIUM 9.3 mg/dL (8.4-10.2); CREATININE, serum 0.72 mg/dL (0.52-1.25); POTASSIUM 5.1 mmol/L (3.4-5.0)
[2017-07-31 08:53] VITALS: BP 120/60; PULSE 62; TEMP 97.9
[2017-07-31 11:42] VITALS: BP 107/62; PULSE 66; TEMP 98.3
[2017-07-31 16:05] VITALS: BP 90/59; PULSE 79
[2017-07-31 20:08] VITALS: BP 95/55; PULSE 74; TEMP 98.6
[2017-08-01] VITALS (7 sets, daily range): BP systolic 95–110; BP diastolic 47–62; PULSE 64–80; TEMP 98–98.4
[2017-08-02 04:54] VITALS: BP 112/64; PULSE 80; TEMP 98.4
[2017-08-02 08:39] LABS: BASO # 0.1 (0.0-0.2); BASO % 0.8 % (0.0-2.0); EOS # 0.7 (0.0-0.7); EOS % 10.7 % (0-4.0); GRAN # 2.9 (1.4-6.5); GRAN % 45.1 % (42.2-75.2); LYMPH # 1.9 (1.2-3.4); LYMPH % 30.5 % (20.0-51.0); MEAN CELL VOLUME 89 fl (80.0-100.0); MEAN CORPUSCULAR HGB CONC 30 g/dl (33.0-37.0); MEAN PLATELET VOLUME 9.6 fl (7.4-10.4); MONO # 0.8 (0.1-0.6); MONO % 12.3 % (1.7-9.3); PLATELET COUNT 300 K/mm3 (130-400); RED BLOOD COUNT 3.34 M/mm3 (4.10-5.30); REDCELL DISTRIBUTION WIDTH-CV 14.6 % (11.5-14.5)
[2017-08-02 08:43] LABS: HEMATOCRIT 29.6 % (37.0-47.0); MEAN CORPUSCULAR HEMOGLOBIN 27 pg (27.0-31.0)
[2017-08-02 08:59] VITALS: BP 103/57; PULSE 67; TEMP 98.4
[2017-08-02 09:06] LABS: ERYTHROCYTE SEDIMENTATION RATE 52 mm/hr (0-30)
[2017-08-02] MEDS ORDERED: NORCO 325 MG-101 TAB PO (09:35)
[2017-08-02] MEDS ORDERED: ULTRAM 50MG TAB50 MG PO (09:35)
[2017-08-02 11:22] VITALS: BP 103/57; PULSE 67; TEMP 98.4
== END 2017-08-02 11:30 | DRG 475 ==
LOC: SURG 14:40
PROVIDERS: Orthopaedic Surgery Sports Medicine; Physician Assistant
PROC: 0Y6C0Z1 Detachment at Right Upper Leg, High, Open Approach (ICD-10-PCS; principal; 2017-07-30 12:30)
DX: T84.53XA Infection and inflammatory reaction due to internal right knee prosthesis, initial encounter (principal); M86.18 Other acute osteomyelitis, other site; I42.0 Dilated cardiomyopathy; I69.354 Hemiplegia and hemiparesis following cerebral infarction affecting left non-dominant side; Z68.42 Body mass index [BMI] 45.0-49.9, adult; I10 Essential (primary) hypertension; M06.9 Rheumatoid arthritis, unspecified; Z87.891 Personal history of nicotine dependence; E66.01 Morbid (severe) obesity due to excess calories; D64.9 Anemia, unspecified
CPT/HCPCS: 99222-AI; 99231-AI; 99232-AI; 99233-AI; 99239; A9284; J0330; J0692; J1170; J1650; J2250; J2704; J3010; J3370; J7030; J7050

== ENCOUNTER → 2017-07-27 | Outpatient (REF) | LOC: ZLAB.STJ 10:07 | DX: Z51.81 Encounter for therapeutic drug level monitoring (principal) ==

== ENCOUNTER → 2017-11-12 | Outpatient (REF) ==
[~2017-11-12] MED LIST changes: +NORCO 325 MG-101 TAB PO; +OPTIMUM AC500 Millio PO
[2017-11-12 17:10] LABS: BASO % 0.5 % (0.0-2.0); EOS # 0.3 (0.0-0.7); EOS % 3.4 % (0-4.0); GRAN # 4.9 (1.4-6.5); HEMATOCRIT 34.5 % (37.0-47.0); HEMOGLOBIN 10.5 g/dl (12.5-16.0); LYMPH # 2.3 (1.2-3.4); LYMPH % 27.4 % (20.0-51.0); MEAN CELL VOLUME 86 fl (80.0-100.0); MEAN CORPUSCULAR HEMOGLOBIN 26 pg (27.0-31.0); MEAN CORPUSCULAR HGB CONC 30 g/dl (33.0-37.0); MONO # 0.7 (0.1-0.6); MONO % 8.5 % (1.7-9.3); PLATELET COUNT 332 K/mm3 (130-400); REDCELL DISTRIBUTION WIDTH-CV 14.6 % (11.5-14.5)
[2017-11-12 17:19] LABS: BILIRUBIN,TOTAL 0.2 mg/dL (0.0-1.0); CALCIUM 9.1 mg/dL (8.4-10.2); CREATININE, serum 0.58 mg/dL (0.52-1.25); POTASSIUM 4.5 mmol/L (3.4-5.0); TOTAL PROTEIN 6.3 gm/dL (6.4-8.2)
== END ==
LOC: ZLAB.STJ 17:03
PROVIDERS: Internal Medicine
DX: I50.22 Chronic systolic (congestive) heart failure (principal)

== ENCOUNTER → 2017-12-28 | Outpatient (CLI) | payer MEDICARE, BC | LOC: ZCOL.LAB 15:49 | DX: Z98.890 Other specified postprocedural states (principal) ==

== ENCOUNTER → 2018-04-21 | Outpatient (CLI) | payer MEDICARE, BC, MEDICAID ==
[2018-04-21 15:30] LABS: BASO % 0.6 % (0.0-2.0); EOS # 0.3 (0.0-0.7); EOS % 6.7 % (0-4.0); GRAN # 2.3 (1.4-6.5); GRAN % 46.4 % (42.2-75.2); HEMOGLOBIN 10.9 g/dl (12.5-16.0); LYMPH # 1.9 (1.2-3.4); LYMPH % 37.4 % (20.0-51.0); MEAN CELL VOLUME 95 fl (80.0-100.0); MEAN CORPUSCULAR HEMOGLOBIN 29 pg (27.0-31.0); MEAN CORPUSCULAR HGB CONC 31 g/dl (33.0-37.0); MEAN PLATELET VOLUME 10.8 fl (7.4-10.4); MONO # 0.4 (0.1-0.6); MONO % 8.5 % (1.7-9.3); PLATELET COUNT 299 K/mm3 (130-400); RED BLOOD COUNT 3.72 M/mm3 (4.10-5.30); REDCELL DISTRIBUTION WIDTH-CV 14.6 % (11.5-14.5)
[2018-04-21 15:32] LABS: HEMATOCRIT 35.4 % (37.0-47.0)
[2018-04-21 15:40] LABS: BILIRUBIN,TOTAL 0.3 mg/dL (0.0-1.0); CALCIUM 8.8 mg/dL (8.4-10.2); CREATININE, serum 0.77 mg/dL (0.52-1.25); POTASSIUM 5.3 mmol/L (3.4-5.0)
== END ==
LOC: ZLAB.STJ 15:21
PROVIDERS: Internal Medicine
DX: I50.22 Chronic systolic (congestive) heart failure (principal); D63.8 Anemia in other chronic diseases classified elsewhere; Z89.611 Acquired absence of right leg above knee; F17.210 Nicotine dependence, cigarettes, uncomplicated; Z86.79 Personal history of other diseases of the circulatory system; Z86.711 Personal history of pulmonary embolism; Z86.14 Personal history of Methicillin resistant Staphylococcus aureus infection

== ENCOUNTER → 2018-05-12 | Outpatient (CLI) | payer MEDICARE, BC, MEDICAID ==
[2018-05-12 18:42] LABS: CALCIUM 9.2 mg/dL (8.4-10.2); CREATININE, serum 0.68 mg/dL (0.52-1.25); POTASSIUM 4.8 mmol/L (3.4-5.0)
== END ==
LOC: ZLAB.STJ 17:12
PROVIDERS: Nurse Practitioner
DX: R79.89 Other specified abnormal findings of blood chemistry (principal)